=== PATIENT | female | born 1970 | race Two or more races ===

== ENCOUNTER 2024-09-15 06:39 | Day surgery (SDC) | payer BC, SELFPAY ==
[2024-09-10 08:47] LABS: Hematocrit 43.1 % (37.0-47.0); Hemoglobin 14.3 g/dL (12.0-16.0); Mean Corp Hgb Conc. 33.2 g/dL (33.0-37.0); Mean Corpuscular Hgb 30.8 pg (27.0-31.0); Mean Corpuscular Volume 92.9 fL (81.0-99.0); Mean Platelet Volume 10.3 fL (7.4-10.4); Platelet Count 244 10^3/uL (130-400); Red Blood Cell Count 4.64 10^6/uL (4.20-5.40); Red Cell Dist. Width 12.2 % (11.5-14.5); White Blood Cell Count 5.1 10^3/uL (4.8-10.8)
[2024-09-10 08:50] LABS: APTT 26.6 Sec (23.4-35.0); INR 0.93; PT 12.8 Sec (11.4-14.6)
[2024-09-10 09:08] LABS: ALT (SGPT) 31 U/L (0-35); AST (SGOT) 31 U/L (14-36); Albumin 4.3 g/dl (3.5-5.0); Alkaline Phosphatase 73 U/L (38-126); Blood Urea Nitrogen 13 mg/dl (7-17); Calcium 9.7 mg/dl (8.4-10.2); Carbon Dioxide 26 mmol/L (22-30); Chloride 105 mmol/L (98-107); Glucose 88 mg/dl (70-99); Sodium 141 mmol/L (135-145); Total Bilirubin 0.7 mg/dl (0.2-1.3); eGFR > 60.00
[2024-09-10 14:06] VITALS: BMI 23.5
[2024-09-15] VITALS (16 sets, daily range): BP systolic 109–122; BP diastolic 54–72; BMI 23.5
[2024-09-15] MEDS: TYLENOL 1000 MG PO (12:36)
[2024-09-15] MEDS: TRANSDERM-SCOP 1 PATCH TRANSDERM (13:58)
== END 2024-09-15 14:15 | disposition home or self-care (01) ==
LOC: SDS 06:39
PROVIDERS: ATTENDING PHYSICIAN Surgery; FAMILY PHYSICIAN Internal Medicine
DX: D12.8 Benign neoplasm of rectum (principal)
CPT/HCPCS: 45171; 88305; 36415; 80053; 82378; 83036; 85027; 85610; 85730; 86850; 86900; 86901; 93005; J1335